=== PATIENT | female | born 1950 | race Caucasian/White ===

== ENCOUNTER 2019-05-27 06:38 | Day surgery (SDC) | payer MEDICARE, OTHER ==
[2019-05-26 09:31] VITALS: BMI 23.5
[2019-05-27 09:54] LABS: Calc. Creatinine Clearance 82 mL/min (70-130); Estimated GFR-MDRD Greater than 90
--- NOTE | 2019-05-27 10:39 | OP ---
DATE OF PROCEDURE: 05/27/2019 PROCEDURES PERFORMED: 1. Esophagogastroduodenoscopy with biopsy. 2. Colonoscopy with biopsy. PREOPERATIVE DIAGNOSES: 1. Chronic diarrhea. 2. Unintentional weight loss. DESCRIPTION OF PROCEDURE: Informed consent was obtained from the patient. She was sedated with total intravenous anesthesia. The bite block was placed and the endoscope was advanced easily to the second portion of the duodenum and retroflexion was performed in the stomach. The esophagus was normal. The GE junction was normal. The stomach was normal including retroflexed views. The pylorus and first and second portions of the duodenum were normal. Random biopsies were taken from the duodenum to rule out celiac disease. The patient was turned around. Rectal exam was performed and was normal. The colonoscope was advanced to the terminal ileum without difficulty. The mucosa of the terminal ileum was normal. The ileocecal valve and appendiceal orifice were clearly identified. The preparation quality was excellent. There was a 2-mm polyp in the descending colon,which was removed with a cold biopsy forceps. Random biopsies were obtained from the ascending, descending, and sigmoid colon. These were to rule out microscopic colitis. The remainder of the colonic mucosa was normal. Retroflexed views in the rectum were normal. IMPRESSION: 1. Normal esophagogastroduodenoscopy. Duodenal biopsies taken to rule out celiac disease. 2. 2-mm descending polyp, removed by cold biopsy forceps. 3. Otherwise normal colonoscopy to the terminal ileum. Random biopsies were taken from the right and left colon to rule out microscopic colitis. RECOMMENDATIONS: 1. Await histopathology. 2. Repeat colonoscopy in 10 years if the polyp is hyperplastic or normal. Repeat colonoscopy in 5 years if the polyp is an adenoma. 3. Follow up in [facility] Clinic for further evaluation of the diarrhea. Her stool studies and blood work have been normal. 4. I will check CT scan of the abdomen and pelvis and chest x-ray in light of the weight loss. Job ID: [id number]
--- NOTE | 2019-05-27 10:47 | RAD ---
TWO VIEWS OF THE CHEST: COMPARISON: None. HISTORY: Weight loss. FINDINGS: Two views of the chest show normal sized cardiomediastinal silhouette. There is no evidence of consol idation, mass, or pleural effusion. The bones are unremarkable. IMPRESSION: No evidence of acute cardiopulmonary disease. POS: C
--- NOTE | 2019-05-27 11:35 | CT ---
EXAM: CT ABDOMEN AND PELVIS HISTORY: Unintentional weight loss COMPARISON: None. Procedure: Multiple contiguous axial images were obtained and a CT of the abdomen and pelvis with IV contrast. C oronal reformats were performed. FINDINGS: Lower Chest: Chronic changes lung bases Vessels: Normal caliber aorta. No periaortic fat stranding. Heart: Normal caliber heart size. Minimal calcification of the left coronary artery. No significant p ericardial effusion. Abdomen: Portal vein:Patent Gallbladder: No calcified gallstones. Normal caliber wall. Common bile duct: Common duct diameter 0.75 cm. Liver: within normal limits. Pancreas: within normal limits. Spleen: within normal limits. Adrenals: within normal limits. Kidneys: Symmetric enhancement. No obstructive uropathy. Peritoneum: No ascites or free air, no fluid collection. Abnormal soft tissue attenuation inferior to the cecal apex measuring 1.4 x 2.8 cm. Bowel: Limited evaluation due to the lack of oral contrast administration. No evidence of bowel obstr uction. Ileocecal junction is unremarkable. Scattered fecal material in a nondistended, nondilated colon. Mesentery and Retroperitoneum: There are scattered nonspecific upper normal mesenteric lymph nodes. R epresentative lymph node measures 0.5 x 1.1 cm. Abdominal Wall: within normal limits. Pelvis: Reproductive Organs: Surgically absent uterus. Pelvis: No mass, lymphadenopathy, free air or free fluid. Bladder: within normal limits. Bones: within normal limits. IMPRESSION: 1. Nonspecific prominence of the common bile duct. 2. Nonspecific mildly enlarged and nonenlarged mesenteric lymph nodes. 3. Abnormal soft tissue attenuation inferior to the cecal apex. Patient does have a history of append ectomy. Possibility of scar tissue is raised. Other etiologies cannot be excluded. CODE T Transcribed Date/Time: 05/27/2019 11:49 AM
[2019-05-27] MEDS ORDERED: Lidocaine 1% PF 5 ML VIAL ONE (15:18)
[2019-05-27] MEDS ORDERED: PROPOFOL 200 MG/20 ML VIAL ONE (15:18)
== END 2019-05-27 11:26 | disposition home or self-care (01) ==
LOC: SDC 06:38
PROVIDERS: ATTEND Internal Medicine Gastroenterology
PROC: 0DB98ZX Excision of Duodenum, Via Natural or Artificial Opening Endoscopic, Diagnostic (ICD-10-PCS; principal; 2019-05-27)
PROC: 0DBK8ZX Excision of Ascending Colon, Via Natural or Artificial Opening Endoscopic, Diagnostic (ICD-10-PCS; 2019-05-27)
PROC: 0DBN8ZX Excision of Sigmoid Colon, Via Natural or Artificial Opening Endoscopic, Diagnostic (ICD-10-PCS; 2019-05-27)
PROC: 0DBM8ZX Excision of Descending Colon, Via Natural or Artificial Opening Endoscopic, Diagnostic (ICD-10-PCS; 2019-05-27)
DX: K52.832 Lymphocytic colitis (principal); D72.820 Lymphocytosis (symptomatic); D12.4 Benign neoplasm of descending colon; K52.9 Noninfective gastroenteritis and colitis, unspecified; F32.9 Major depressive disorder, single episode, unspecified; Z79.899 Other long term (current) drug therapy; Z90.49 Acquired absence of other specified parts of digestive tract
CPT/HCPCS: 36415; 71046; 74177; 82565; 88305; J2001; J2704

== ENCOUNTER 2019-10-01 09:31 | Outpatient (CLI) | payer MEDICARE, OTHER ==
--- NOTE | 2019-10-01 13:34 | CT ---
CT ABDOMEN AND PELVIS WITH ORAL AND IV CONTRAST: HISTORY: Enlarged lymph nodes, unspecified. COMPARISON: 05/27/2019. FINDINGS: Mild dependent changes are seen in the lung bases. The liver, spleen, pancreas, adrenal glands, and kidneys are normal. No calcified gallstones are seen. No free air, free fluid, or lymphadenopathy is seen in the abdomen or pelvis. The small bowel loops are not abnormally dilated. There is fecal material in the colon. The patient is post hysterectomy and appendectomy. The 1.4 x 2.8 cm soft tissue density inferior to the cecal apex is stable. There are vascular calcifications without evidence of aneurysmal dilatation of the abdominal aorta. There are degenerative changes in the spine. IMPRESSION: Stable soft tissue density inferior to the cecal apex which may be related to patient's history of ap pendectomy (likely scar). POS: [facility]
== END 2019-10-01 09:32 | disposition home or self-care (01) ==
LOC: SCSCT 09:31
PROVIDERS: ATTEND Internal Medicine Gastroenterology
DX: R59.9 Enlarged lymph nodes, unspecified (principal); K63.89 Other specified diseases of intestine
CPT/HCPCS: 74177; 82565